=== PATIENT | female | born 1990 | race Caucasian/White ===

== ENCOUNTER → 2018-05-10 20:56 | Observation (INO) ==
[2018-05-10 19:57] LABS: Bilirubin,Urine Negative (Negative); Blood,Urine Negative (Negative); Clarity,Urine Cloudy (Clear); Color,Urine Yellow (Yellow); Glucose,Urine (UA) Normal (Normal); Ketones,Urine Negative (Negative); Leukocyte Esterase,Urine Large (Negative); Nitrite,Urine Negative (Negative); Protein,Urine Negative (Neg-Trace); Specific Gravity,Urine 1.008 (1.010-1.025); Urobilinogen,Urine Normal (Normal)
[2018-05-10 19:59] LABS: Bacteria,Urine Moderate per hpf (None-Few); Hyaline Casts,Urine None Seen per lpf (None-Few); RBC,Urine 0-3 per hpf (0-3); Squamous Epithelial Cell,Urine Many per lpf (None-Few); WBC,Urine 15-30 per hpf (0-3)
--- NOTE | 2018-05-10 20:13 | OB/GYN Progress Note ---
Date of Encounter: 05/10/18 Time of Encounter: 20:09 - Assessment and Plan (1) 38 weeks gestation of Current Visit: Yes Status: Acute UA - indicative of UTI UDS - negative NST - reactive Discharge home with macrobid x 10 days Discharge home with labor precautions Follow up in office tomorrow as scheduled for routine PNC and PRN (2) Urinary tract infection affecting care of mother in third trimester, antepartum Current Visit: Yes Status: Acute (3) NST (non-stress test) reactive Current Visit: Yes Status: Acute Subjective - Subjective Principal diagnosis: Cramping and urinary urgency Interval history: Ms Perez is a at 38 weeks 3 days that presents to triage with c/o vaginal pressure, urinary frequency, and contractions. She states that her symptoms began this morning and have worsened throughout the day. She states positive movement. She denies headaches, vision changes, epigastric pain, leaking of fluid, and vaginal bleeding. This has been complicated by maternal obesity and a peripheral cord insertion. She sees Dr Jensen in the office. Antepartum ROS: movement normal, contractions, no loss of fluid, no vaginal bleeding Objective - Exam FHR: auscultation normal, category 1 FHR comments: Contractions every 2-3 minutes, Baseline 150 Abdomen: Present: normal appearance, soft, gravid Uterus: Present: normal. Absent: firm, tenderness Comments: Suprapubic tenderness with palpation. Negative for CVA tenderness. - Labs Labs: Abnormal lab results Urine Clarity Cloudy (Clear) A 05/10/18 19:44 Ur Specific [place] 1.008 (1.010-1.025) L 05/10/18 19:44 Ur Leukocyte Esterase Large (Negative) H 05/10/18 19:44 Urine Microscopic WBC 15-30 per hpf (0-3) H 05/10/18 19:44 Ur Squamous Epith Cells Many per lpf (None-Few) H 05/10/18 19:44 Urine Bacteria Moderate per hpf (None-Few) H 05/10/18 19:44 Ur Culture Indicated? NO. (NO) A 05/10/18 19:44
[2018-05-10 20:20] LABS: Amphetamine Screen,Urine Negative ng/mL (Cutoff=1000); Barbiturate Screen,Urine Negative ng/mL (Cutoff=200); Benzodiazepines Screen,Urine Negative ng/mL (Cutoff=200); Cannabinoid Screen,Urine Negative ng/mL (Cutoff = 50); Cocaine Screen,Urine Negative ng/mL (Cutoff= 300); Opiate Screen,Urine Negative ng/mL (Cutoff=300); Phencyclidine Screen,Urine Negative ng/mL (Cutoff=25)
== END | disposition home or self-care (01) ==
LOC: 1NENULAB
PROVIDERS: ADMIT Advanced Practice Midwife; ATTEND Advanced Practice Midwife

== ENCOUNTER 2018-05-16 16:41 | Inpatient (IN) ==
--- NOTE | 2018-05-16 16:14 | OB/GYN History & Physical ---
Date of Encounter: 05/16/18 Time of Encounter: 16:07 Assessment and Plan (1) 39 weeks gestation of Current visit: Yes Status: Acute Admit to Labor and Delivery Dr. Huertas is the OB special education director (2) Antepartum tachycardia affecting care of mother Current visit: Yes Status: Acute Admit to labor and delivery. Continuous monitoring. AROM for no fluid. (3) complicated by noncompliance in third trimester, antepartum Current visit: Yes Status: Acute (4) Marginal insertion of umbilical cord Current visit: Yes Status: Acute History of Present Illness Chief complaint: Vaginal Bleeding HPI: Ms. Perez is a 27 year old female at 39 week 3 days who presents for evaluation of labor. States that she has experienced vaginal bleeding that has progressed throughout the day. Endorses + FM. Denies loss of clear fluid. Also states she has been feeling contractions coming and going throughout the day. Denies headache, blurry vision, SOB, chest pain, nausea, vomiting. Recently diagnosed with UTI last week for which patient took antibiotics ( unknown) but stopped after 3 days because of lack of symptoms. Pt seen throughout by Dr. Jensen. Labs: Blood Type: AB-positive Antibody screen negative GBS - negative Hep B Surf Ag - negative HIV Ab - nonreactive Treponema - negative G/C - nonreactive Varicella Immune Rubella unknown, will get IGG Past Med Surg Social Fam HX - Past Medical History Attestation: Yes The following information was validated with the patient. Source: patient Medical history: no medical history Additional medical history: Partial Hearing Loss Psychiatric history: no psych history - Past Surgical History Surgical History: other Additional surgical history: rectal prolapse at 5 years old, tubes in ears - Social History Smoking Status: Never smoker Smokeless Tobacco Status: No Alcohol use: none Drug use: none - Family History Mother Grandmother Hx Family Cardiac Disorders: No Hx Family Respiratory Disorders: No Hx Family Cancer: Yes (Breast) Hx Family GI Disorders: No Hx Family Genitourinary Disorders: No Hx Family Endocrine Disorder: No Hx Family Musculoskeletal Disorders: No Hx Family Neuromuscular Disorders: No Hx Family Neurologic Disorders: No Hx Family HEENT Disorders: No Hx Family Autoimmune Disorders: No Hx Family Reproductive Disorders: No Hx Family Psychosocial Disorders: No Hx Family Medical Disorders: No Obstetrical History - Pregnancies : 3 Para: 2 Term: 2 : 0 Ab's: 0 Livin Medications and Allergies Tablet 1 tab PO DAILY 05/10/18 [History] 3 Allergy/AdvReac Type Severity Reaction Status Date / Time No Known Allergies Allergy Verified 05/10/18 19:34 Review of System OB All systems PM: reviewed and no additional remarkable complaints except as stated Exam - Vital Signs Vital signs: VSS - Constitutional Constitutional: well developed, well nourished, no acute distress, average body habitus - HEENT HEENT: EOMI, PERRL, Normocephaly, Mucus Membranes Moist - Neck Neck exam: full ROM - Lungs Respiratory exam: CTAB - Cardiovascular Cardiovascular exam: RRR, +S1, +S2 - Abdomen Abdomen: Present: bowel sounds normal, gravid, non tender - Extremities Extremities exam: full ROM, normal capillary refill, normal inspection, radial pulses palpable and symmetrical Deep Tendon Reflex Grade: 3+ Normal But Brisk - Cervix Dilation: 3 (Per RN) Effacement: 70 Station: -1 Results Result Diagrams: 05/16/18 16:42 All other labs normal. - VTE Reasons for not Prescribing Prophylaxis: Treatment not Indicated - Low risk for VTE - Attending Attestation I examined this patient and my medical decision-making was reviewed with the Resident Physician. I agree with the documented findings, disposition and treatment plan as described except to the extent set forth below. Review of records reveal that the patient has been noncompliant with multiple no-shows of appointments and same-day cancellations. This increases her risk as well as her elevated BMI of 35 at initiation of care. One- hour glucose screening was at the high end of normal (139) on 03/12/18 when she got her other initial lab work completed. She is also anemic which increases her risk for worsening anemia .
[~2018-05-16 16:41] MED LIST: *HR* Nalbuphine 10 MG/ML AMPUL IVP PRN; Famotidine 20 MG/2 ML VIAL IVP PRN; Metoclopramide 10 MG/2 ML VIAL IVP PRN; Naloxone 0.4 MG/ML INJ IVP PRN; Ondansetron 4 MG/2 ML VIAL IVP PRN; Ringers Solution, Lactated 1,000 ML IVC ONE
[2018-05-16] MEDS ORDERED: Ringers Solution, Lactated 1,000 ML IVC SCH (16:45)
[2018-05-16 16:58] LABS: Basophils % 0.2 %; Eosinophils % 0.5 %; Hematocrit 30.3 % (35.3-44.9); Hemoglobin 9.8 g/dL (11.5-15.4); Immature Granulocytes % 0.6 % (0-4); Lymphocytes # 1.5 K/mcL (0.6-4.6); Lymphocytes % 17.7 %; Mean Corpuscular HGB Conc 32.3 g/dL (31.6-35.5); Mean Corpuscular Hemoglobin 25.3 pg (28.0-33.3); Mean Corpuscular Volume 78.3 fL (83.0-100.0); Mean Platelet Volume 10.9 fL (9.4-12.4); Monocytes # 0.8 K/mcL (0.0-1.3); Monocytes % 9.4 %; Neutrophils # 6.2 K/mcL (1.6-8.9); Platelet Count 164 K/mcL (140-400); Red Blood Count 3.87 M/mcL (3.82-4.97); Segmented Neutrophils % 71.6 %
[2018-05-16 17:10] LABS: Amphetamine Screen,Urine Negative ng/mL (Cutoff=1000); Barbiturate Screen,Urine Negative ng/mL (Cutoff=200); Benzodiazepines Screen,Urine Negative ng/mL (Cutoff=200); Cannabinoid Screen,Urine Negative ng/mL (Cutoff = 50); Cocaine Screen,Urine Negative ng/mL (Cutoff= 300); Opiate Screen,Urine Negative ng/mL (Cutoff=300); Phencyclidine Screen,Urine Negative ng/mL (Cutoff=25)
[2018-05-16] MEDS ORDERED: 0.9 % Sodium Chloride 1,000 ML ONE (17:59)
--- NOTE | 2018-05-16 18:56 | OB Labor Progress Note ---
Date of Encounter: 05/16/18 Time of Encounter: 17:45 Labor Progress Note - Subjective Subjective: I was called to evaluate the patient for tachycardia by CNM, who reports no fluid seen when placing internal os. The patient reports starting to feel her contractions which are spontaneous, fetus is active. She ate a sausage sandwich at 1 PM. She denies any fever or chills. She has had no leakage of fluid. She reports no history of complications, placental or delivery problems with previous pregnancies. - Vital Signs Vital Signs: Afebrile, vital signs stable, normal white count on the CBC, 8.6. Hemoglobin 9.8 - Cervix Cervix: 5/70/-1, vtx - Heart Tones Heart Tones: 180s with penitentiary and short term variability. - Clarita Clarita: irregular - Interventions Interventions: 39 week IUP with tachycardia in the 180s. Findings suspicious for thick meconium. - Plan Plan: IV fluid bolus had been given prior to my arrival. Shortly after my exam heart tones came down to baseline of 150s which was the rate noted on arrival. There had been some small variable decelerations noted also. IUPC showed contractions every 2-5 minutes, spontaneous. Decision was made to continue to observe labor, complete anesthesia evaluation for possible emergency intervention in the future, and amnioinfusion to help with variable heart rate pattern. Patient made aware of findings and plan of care.
[2018-05-16] MEDS ORDERED: Oxytocin 20 units/ LR 1000 mL 20 UNIT/1,000 ML BAG IVC SCH (19:30)
--- NOTE | 2018-05-16 19:56 | Anesthesia Evaluation PreOp ---
Date of Encounter: 05/16/18 Time of Encounter: 17:50 - Past History Planned Operation: RENAE Cardiac History: Denies any Significant Hx Pulmonary History: Denies Any Significant HX CHROME TANNER History: Denies Any Significant HX Other Medical History: Denies Any Significant HX Anesthesia History: No Prior Anesthetic Complications : Yes Test: Positive Alcohol Use: none Drug use: none Medications and Allergies Tablet 1 tab PO DAILY 05/10/18 [History] 3 Allergy/AdvReac Type Severity Reaction Status Date / Time No Known Allergies Allergy Verified 05/10/18 19:34 - Meds/Allergy Pre-op Review Medications Reviewed: Yes Allergies Reviewed: Yes Beta Blockers on Current Med List: No Anesthesia Results - Labs 05/16/18 16:42 Anesthesia Exam 118/76 101 18 97% Height: 1.65 Weight: 99kg NPO (# of Hours): 1300 Pain Scale: 5 - HEENT Pupil (Motor): Pupils equal Mallampati: II Teeth: Normal Oral Opening: Greater than 3 - CHROME TANNER LOC: Oriented CHROME TANNER Motor: Normal RUE, Normal LUE, Normal RLE, Normal LLE, Normal Face CHROME TANNER Sensory: Normal: RUE, LUE, RLE, LLE, Face - Cardiac Rhythm: Regular Murmur: None JVD: No Carotid Bruit: No - Pulmonary Breath Sounds: bilateral Clear Respiratory Effort: Symmetrical Anesthesia Assess/Plan ASA Score: 2 Modified [place] Scale for Level of Consciousness: Cooperative, oriented, and tranquil Anesthetic Plan: Regional Autologous Blood: Yes Monitoring Plan: Standard Monitors
[2018-05-16] MEDS ORDERED: Epidural Premix (fent/bupiv) 110 ML EP SCH (20:00)
[2018-05-16] MEDS ORDERED: Lidocaine -MPF 1% 5 ML AMPUL ONE (20:01)
[2018-05-16] MEDS ORDERED: Epidural Premix (fent/bupiv) 110 ML EP ONE (20:05)
--- NOTE | 2018-05-16 20:51 | Anesthesia Procedures ---
Date of Encounter: 05/16/18 Time of Encounter: 20:00 Procedures: Anesthesia - Epidural/Spinal Patient ID/Chart reviewed: Yes Patient examined: Yes OB Eval: Gestational age: 39.3 OB Eval: : 3 OB Eval: Hx Para: 2 OB Eval: Dilated at (cm): 5 OB Eval: Contractions: Non-stressed pattern Consent Obtained: Yes Site Prep: Aseptic Technique, Sterile prep and drape, Povidone-Iodine 1% Patient position: upright Local Anesthetic: Lidocaine 1% Amount of Local Anesthetic used: 3 Touhy Needle Gauge: 18 Touhy Needle Depth (cm): 6 Catheter Depth at Skin (cm): 8 Test Dose Result: Negative Loading Dose: 0.25% Marcaine (mls): 10 Infusion Rate (mls/hr): [address]: Tegaderm, Tape Interspace Used: L4-L5 Loss of Resistance (ELVA): Yes Blood: No CSF: No Paresthesia: No Vitals + FHT's: stable throughout see nursing notes
--- NOTE | 2018-05-16 23:41 | OB/GYN Procedure Note ---
Delivery - Delivery Date: 05/16/18 Provider: Amos Mendoza (Leslee) Intrapartum events: oligohydramnios Delivery augmentation: rupture of membranes, pitocin Delivery monitor: internal FHT, internal uterine Anesthesia: epidural Quantitated Blood Loss: 100 - (s) A Infant Delivery Date: 05/16/18 Delivery Time: 23:20 Presentation: vertex Position: CALIN Route of delivery: Gender: Female Viability: Viable Pounds: 7 Ounces: 3 Weight Gram: 3.27 kg at 1 minute: 8 at 5 mins: 8 Shoulder Dystocia: not encountered Placenta: spontaneous Cord: 3 umbilical vessels - Repair Episiotomy: none Laceration Description: None - Complications Delivery complications: none - Disposition Mom disposition: stable in LDR disposition: stable in LDR - Comments Comments: Patient presented in active labor, received AROM and Pitocin for augmentation. Patient received epidural for anesthesia. Proceeded spontaneously to delivery of viable female . After pulsations ceased the cord was clamped and cut and the placenta delivered spontaneously and intact. EBL 100 mL, no lacerations , Mother-baby stable in delivery room. I arrived to room as was placed on maternal abdomen. I assisted Dr. Cain with delivery of the placenta. Upon inspection no lacerations were noted. EBL 100ml. Placenta appears intact with peripheral cord insertion. Mother and baby stable in DR following procedure. Nelsy Camilo CNM
[2018-05-17] MEDS ORDERED: Lanolin 7 G OINT...G. TP PRN (01:47)
[2018-05-17] MEDS ORDERED: Oxytocin 20 units/ LR 1000 mL 20 UNIT/1,000 ML BAG IVC SCH (01:47)
[2018-05-17] MEDS ORDERED: Measles/Mumps/Rubella Vacc 0.5 ML VIAL SQ PRN (01:47)
[2018-05-17] MEDS ORDERED: Acetaminophen 325 MG TABLET PO PRN (01:47)
[2018-05-17 05:52] LABS: Basophils % 0.3 %; Eosinophils % 0.4 %; Hematocrit 30.6 % (35.3-44.9); Hemoglobin 9.9 g/dL (11.5-15.4); Immature Granulocytes % 1.1 % (0-4); Lymphocytes # 1.7 K/mcL (0.6-4.6); Lymphocytes % 15.6 %; Mean Corpuscular HGB Conc 32.4 g/dL (31.6-35.5); Mean Corpuscular Hemoglobin 25.2 pg (28.0-33.3); Mean Corpuscular Volume 77.9 fL (83.0-100.0); Mean Platelet Volume 11.6 fL (9.4-12.4); Monocytes # 0.8 K/mcL (0.0-1.3); Monocytes % 7.3 %; Platelet Count 143 K/mcL (140-400); Red Blood Count 3.93 M/mcL (3.82-4.97); Red Cell Distribution Width 15.1 % (11.5-14.5); Segmented Neutrophils % 75.3 %
[2018-05-17 05:54] LABS: Neutrophils # 8.1 K/mcL (1.6-8.9)
[2018-05-17] MEDS: Prenatal Vit/FA 1 EACH TABLET PO SCH (07:30)
--- NOTE | 2018-05-17 09:09 | OB/GYN Progress Note ---
Date of Encounter: 05/17/18 Time of Encounter: 09:07 - Assessment and Plan (1) Status post vaginal delivery Current Visit: Yes Status: Acute Meeting day 1 milestones anticipated discharge home tomorrow Subjective - Subjective Principal diagnosis: day 1 Interval history: Patient resting in bed feeding infant. Patient denies any pain or concerns at this time. Patient reports lochia is moderate without clots. Patient reports: appetite normal, voiding normally, pain well controlled, ambulating normally [place]: doing well, bottle feeding Objective - Latest Vital Signs Latest vital signs: Vital Signs Temp Pulse Resp BP Pulse Ox 05/17/18 07:30 98.4 F 82 16 122/72 05/17/18 03:45 98.3 F 75 16 122/69 97 05/17/18 02:45 98.1 F 79 14 118/65 98 05/17/18 01:45 98.4 F 80 14 124/74 97 Intake and Output 05/16/18 05/17/18 05/17/18 23:59 07:59 15:59 Intake Total 500 / 500 Output Total 700 / 700 Balance -200 / -200 Intake: Oral 500 / 500 Output: Urine 700 / 700 Other: Meal Breakfast Percent of Meal Consumed 100% Weight 99.518 kg 96.6 kg Patient Weight 05/17/18 23:59 Weight 96.6 kg - Exam Lungs: bilateral: normal Chest: Normal S1, Normal S2 Extremities: Present: normal Abdomen: Present: normal appearance, soft Uterus: Present: normal, firm Uterus Position: At Umbilicus, Midline - Labs Labs: Laboratory Results - last 24 hr 05/16/18 05/16/18 05/17/18 16:42 16:45 05:33 WBC 8.6 10.8 RBC 3.87 3.93 Hgb 9.8 L 9.9 L Hct 30.3 L 30.6 L MCV 78.3 L 77.9 L MCH 25.3 L 25.2 L MCHC 32.3 32.4 RDW 15.0 H 15.1 H Plt Count 164 143 MPV 10.9 11.6 Immature Gran % 0.6 1.1 Seg Neutrophils % 71.6 75.3 Lymphocytes % 17.7 15.6 Monocytes % 9.4 7.3 Eosinophils % 0.5 0.4 Basophils % 0.2 0.3 Neutrophils # 6.2 8.1 Lymphocytes # 1.5 1.7 Monocytes # 0.8 0.8 Eosinophils # 0.0 0.0 Basophils # 0.0 0.0 Urine Opiates Screen Negative Ur Barbiturates Screen Negative Ur Phencyclidine Scrn Negative Ur Amphetamines Screen Negative U Benzodiazepines Scrn Negative Urine Cocaine Screen Negative U Marijuana (THC) Screen Negative Ur Drug Screen Interp See Below
[2018-05-17] MEDS: Ibuprofen 600 MG TABLET PO PRN (15:23)
[2018-05-18] MEDS: Ibuprofen 600 MG TABLET PO PRN ×2 (03:39→11:05)
[2018-05-18 07:56] VITALS: BP 112/76
[2018-05-18] MEDS: Prenatal Vit/FA 1 EACH TABLET PO SCH (08:15)
--- NOTE | 2018-05-18 10:40 | Discharge Summary ---
Date of Encounter: 05/18/18 Time of Encounter: 10:37 - Discharge Diagnosis (1) Vaginal delivery Priority: Primary Status: Acute Comments: S/P vaginal delivery day 2 Pain is well controlled VSS Lochia light and without clots Tolerating regular diet and voiding with difficulty; passing flatus Bottle feeding Discharge home today - Discharge Medications Prescriptions: Ibuprofen [Motrin] 600 mg PO Q6HR PRN #30 tablet PRN Reason: Cramping Docusate [Colace] 100 mg PO BID PRN #30 capsule PRN Reason: Constipation Home Medications: Tablet 1 tab PO DAILY 05/10/18 [History] Acetaminophen [Tylenol] 650 mg PO Q6HR PRN tablet 05/18/18 [Rx] Docusate [Colace] 100 mg PO BID PRN #30 capsule 05/18/18 [Rx] Ferrous Sulfate 325 mg PO DAILY tablet 05/18/18 [Rx] Ibuprofen [Motrin] 600 mg PO Q6HR PRN #30 tablet 05/18/18 [Rx] Lanolin [Lansinoh] 1 appl TP Q4HR PRN oint...g. 05/18/18 [Rx] Allergies/Adverse Reactions: 3 Allergy/AdvReac Type Severity Reaction Status Date / Time No Known Allergies Allergy Verified 05/10/18 19:34 Data Procedures and tests throughout hospitalization: Laboratory Tests 05/16/18 05/16/18 05/17/18 16:42 16:45 05:33 WBC 8.6 10.8 RBC 3.87 3.93 Hgb 9.8 L 9.9 L Hct 30.3 L 30.6 L MCV 78.3 L 77.9 L MCH 25.3 L 25.2 L MCHC 32.3 32.4 RDW 15.0 H 15.1 H Plt Count 164 143 MPV 10.9 11.6 Immature Gran % 0.6 1.1 Seg Neutrophils % 71.6 75.3 Lymphocytes % 17.7 15.6 Monocytes % 9.4 7.3 Eosinophils % 0.5 0.4 Basophils % 0.2 0.3 Neutrophils # 6.2 8.1 Lymphocytes # 1.5 1.7 Monocytes # 0.8 0.8 Eosinophils # 0.0 0.0 Basophils # 0.0 0.0 Urine Opiates Screen Negative Ur Barbiturates Screen Negative Ur Phencyclidine Scrn Negative Ur Amphetamines Screen Negative U Benzodiazepines Scrn Negative Urine Cocaine Screen Negative U Marijuana (THC) Screen Negative Ur Drug Screen Interp See Below Rubella IgG Antibody 05/17/18 19:18 WBC RBC Hgb Hct MCV MCH MCHC RDW Plt Count MPV Immature Gran % Seg Neutrophils % Lymphocytes % Monocytes % Eosinophils % Basophils % Neutrophils # Lymphocytes # Monocytes # Eosinophils # Basophils # Urine Opiates Screen Ur Barbiturates Screen Ur Phencyclidine Scrn Ur Amphetamines Screen U Benzodiazepines Scrn Urine Cocaine Screen U Marijuana (THC) Screen Ur Drug Screen Interp Rubella IgG Antibody Negative L Labs on day of discharge: Labs from last 24 hours 05/17/18 19:18 Rubella IgG Antibody Negative L Date of admission: 05/16/18 16:41 Primary care physician: PCP NONE Consults: 05/17/18 01:47 Consult to [place] [facility] [CONS] Routine Comment: Vaginal delivery, consult needed Discharging clinician: Elaina Azar Anticipated date of discharge: 05/18/18 - Patient Status Disposition: Home, Self-Care Condition: Good Functional capacity at discharge: independent ambulation Overall status at discharge: patient is progressing back to baseline - Discharge Instructions Follow Up With: NONE,PCP [Primary Care Provider] - Nelsy Camilo CNM [Non-Partnered Physician] - - Diet and Activity Activity: increase activity as tolerated Diet: regular diet Hospital Course Reason for admission: induction of labor, IUP at term Delivery: Episiotomy: none Laceration: none Other procedures: none complications: none Discharge diagnosis: IUP at term delivered [place] baby: female Time Attestation: Total time spent providing and/or coordinating discharge services: Time Spent: Less than 30 minutes Exam - Constitutional Vitals: Temp Pulse Resp BP Pulse Ox 98.3 F 76 16 112/76 97 05/18/18 07:55 05/18/18 07:55 05/18/18 08:00 05/18/18 07:55 05/17/18 20:05 General appearance IM: cooperative, A&O X 3, pleasant - Respiratory Respiratory exam: Present: CTAB - Cardiovascular Cardiovascular exam IM: Present: RRR, +S1, +S2 - GI/Abdominal GI/Abdominal exam IM: normal bowel sounds, soft - Rectal Rectal exam: deferred - Uterine Tone: Firm Uterus Position: At Umbilicus, Midline - Extremities Exam Extremities exam IM: Present: normal capillary refill, normal inspection, radial pulses palpable and symmetrical - Neurological Exam Neurological exam: alert, oriented X3, reflexes normal
== END 2018-05-18 12:23 | disposition home or self-care (01) | DRG 775 ==
LOC: 1NENULAB → 1NENUOBS 05-17 01:47
PROVIDERS: ADMIT Obstetrics & Gynecology; ATTEND Obstetrics & Gynecology